=== PATIENT | male | born 1980 | race Caucasian/White ===

== ENCOUNTER 2024-07-28 09:31 | Emergency (ER) | payer OTHER, SELFPAY ==
[2024-07-28] VITALS (8 sets, daily range): BP systolic 123–148; BP diastolic 80–86; PULSE 75–99; RESP 16; TEMP 36.6; O2SAT 97–100
--- NOTE | ~2024-07-28 | XR_ITS ---
EXAMINATION: XR chest 2V DATE: 07/28/2024 11:07 INDICATION: Chest pain. TECHNIQUE: Frontal and lateral views of the chest were obtained. COMPARISON: None. FINDINGS: There is no pneumonia, pleural effusion, or pneumothorax. The heart size is normal. IMPRESSION: 1. No acute cardiopulmonary disease. Reviewed, dictated and finalized at location [facility]. [facility] OF STAFF
--- NOTE | 2024-07-28 09:39 | ECG_ITS ---
Test Date: 2024-07-28 09:43:26 Measurements Intervals [place] Rate: 81 P: 66 NV: 134 QRS: 65 QRSD: 90 T: 52 QT: 334 QTc: 388 Interpretive Statements SINUS RHYTHM DELAYED PRECORDIAL R/S TRANSITION BORDERLINE ECG No previous ECG available for comparison Electronically Signed On 07-28-2024 10:08:04 [employer]OOK [employer] by Michael Medrano D.O.
[2024-07-28 10:46] LABS: Basophils Absolute Auto 0.1 K/mm3 (0.0-0.1); Basophils Percent Auto 0.9 % (0.2-1.2); Eosinophils Absolute Auto 0.1 K/mm3 (0-0.3); Eosinophils Percent Auto 1.7 % (0-4.4); Hematocrit 41.3 % (42.0-52.0); Hemoglobin 14.2 g/dL (14.0-18.0); Immature Granulocyte Absolute 0.02 K/mm3 (0.00-0.031); Immature Granulocyte Percent A 0.3 % (0-0.5); Lymphocytes Absolute Auto 1.07 K/mm3 (0.9-3.2); Lymphocytes Percent Auto 16.1 % (18.3-44.2); Mean Corpuscular HGB Conc 34.4 g/dl (32-36); Mean Corpuscular Hemoglobin 30.1 pg (26-34); Mean Corpuscular Volume 87.5 fl (80-100); Mean Platelet Volume 9.3 fl (7.4-10.4); Monocytes Absolute Auto 0.5 K/mm3 (0.1-0.6); Monocytes Percent Auto 7.7 % (2.6-8.5); Neutrophils Absolute Auto 4.9 K/mm3 (1.3-6.7); Neutrophils Percent Auto 73.3 % (45.5-73.1); Platelet Count Result 274 k/mm3 (150-375); Red Blood Count 4.72 M/mm3 (4.6-6.20); Red Cell Distribution Width 12.4 % (11.5-14.5); White Blood Count 6.6 K/mm3 (4.5-10.0)
[2024-07-28 11:03] LABS: Alanine Aminotransferase 27 U/L (6-50); Albumin Level 4.4 g/dL (3.5-5.1); Alkaline Phosphatase 42 U/L (38-126); Anion Gap 6 mmol/L (4-12); Aspartate Amino Transferase 29 U/L (17-59); Bilirubin,Total 0.8 mg/dL (0.2-1.3); Blood Urea Nitrogen 8 mg/dL (9-20); Calcium 9.5 mg/dL (8.4-10.2); Carbon Dioxide 31 mmol/L (22-30); Chloride 102 mmol/L (98-107); Estimated CRCL calculation 132 ml/min; Estimated Glomerular Filt Rate > 60; Glucose 102 mg/dL (65-110); Potassium 3.6 mmol/L (3.4-5.0); Sodium 139 mmol/L (137-145)
[2024-07-28 11:07] LABS: Prothrombin Time 13.1 Seconds (11.1-14.7)
[2024-07-28 11:15] LABS: Troponin I < 0.012 ng/mL (0.000-0.034)
--- NOTE | 2024-07-28 11:16 | ED.ARRPALP ---
HPI - Arrhythmia/Palpitations General Chief Complaint: Arrhythmia/Palpitations Stated Complaint: PALPITATIONS Time Seen by Provider: 07/28/24 11:08 History of Present Illness HPI narrative: Pt presents with palpitations off and on for several days. Pt denies CP. Pt says he has been under a lot of stress and has not beens sleeping well. Pt tries to exercise regularly but this seems to make it worse. Pt was drinking a lot of caffeine but has stopped this about a week ago. Related Data Home Medications Medication Instructions Recorded Confirmed multivitamin 1 tablet PO DAILY 02/01/24 02/08/24 Allergies Allergy/AdvReac Type Severity Reaction Status Date / Time No Known Allergies Allergy Verified 07/28/24 09:42 Review of Systems Review of Systems: All systems reviewed & are unremarkable except as noted in HPI and below PMFSH Past Medical History Medical History (Updated 07/28/24 @ 11:22 by Chemo Rodriguez III, DO) Depression with anxiety Social History Social History Smoking status: Never smoker Alcohol intake: current Substance use: never Substance use type: does not use Lack of Transportation: No Lack of Food: Never True Current Housing: I Have Housing Concerned About Future Housing: No Difficulty Paying Gas/Electric Bills: No Difficulty Paying for Meds: No Currently Unemployed: No Education: Master's Degree or Higher Difficulty w/ Childcare or Family Care: No Living arrangements: with family Occupation/Education: occupation Exam Const: General: healthy appearing and no acute distress Nutritional Appearance: well nourished Orientation/consciousness: patient oriented x3 Limitations: no limitations Resp: Effort & Inspection: normal respiratory effort Auscultation: clear to auscultation bilaterally Cardio: Rate: regular rate Rhythm: regular rhythm Skin: General skin exam: normal color Wounds: no wounds Neuro: General: patient oriented x3, moves all extremities, no focal motor deficits and CN's II-XI intact bilaterally Speech: normal speech Extrem: General: normal to inspection and no clubbing, cyanosis or edema Psych: Mental Status: mental status grossly normal Affect: normal affect Attitude: cooperative Course Vital Signs Vital signs: Vital Signs Temperature 97.8 F 07/28/24 09:39 Pulse Rate 99 07/28/24 09:39 Respiratory Rate 16 07/28/24 09:39 Blood Pressure 148/86 H 07/28/24 09:39 Pulse Oximetry 99 07/28/24 09:39 Temperature 97.9 F 07/28/24 12:31 Pulse Rate 77 07/28/24 12:31 Respiratory Rate 16 07/28/24 12:31 Blood Pressure 125/83 07/28/24 12:31 Pulse Oximetry 99 07/28/24 12:31 Oxygen Delivery Room Air 07/28/24 10:40 MDM - Arrhythmia/Palpitations MDM Narrative Medical decision making narrative: Pt presents with palpitations. under a ot of stress recently and not seeping well. could be pvc's or an arrythimia not seen on ekg here. will chech labs and likely Holter monitor. Differential Diagnosis Differential diagnosis: Likely palpitations, anxiety, artial fibrillation, artial flutter, ventricular premature beats, supraventricular tachycardia and WPW Lab Data 07/28/24 10:42 07/28/24 10:42 Labs: Lab Results 07/28/24 Range/Units 10:42 WBC 6.6 (4.5-10.0) K/mm3 RBC 4.72 (4.6-6.20) M/mm3 Hgb 14.2 (14.0-18.0) g/dL Hct 41.3 L (42.0-52.0) % MCV 87.5 (80-100) fl MCH 30.1 (26-34) pg MCHC 34.4 (32-36) g/dl RDW 12.4 (11.5-14.5) % Plt Count 274 (150-375) k/mm3 MPV 9.3 (7.4-10.4) fl Immature Gran % (Auto) 0.3 (0-0.5) % Neut % (Auto) 73.3 H (45.5-73.1) % Lymph % (Auto) 16.1 L (18.3-44.2) % [place] % (Auto) 7.7 (2.6-8.5) % Eos % (Auto) 1.7 (0-4.4) % Baso % (Auto) 0.9 (0.2-1.2) % Lymph # (Auto) 1.07 (0.9-3.2) K/mm3 [place] # (Auto) 0.5 (0.1-0.6) K/mm3 Eos # (Auto) 0.1 (0-0.3) K/mm3 Baso # (Auto) 0.1 (0.0-0.1) K/mm3 Abs Immat Gran (auto) 0.02 (0.00-0.031) K/mm3 Absolute Neuts (auto) 4.9 (1.3-6.7) K/mm3 Absolute Nucleated RBC 0.000 (0.0-0.012) K/mm3 Nucleated RBC % 0.0 (0.0-0.2) % PT 13.1 (11.1-14.7) Seconds INR 1.0 APTT 28.0 (22.3-36.8) Seconds Sodium 139 (137-145) mmol/L Potassium 3.6 (3.4-5.0) mmol/L Chloride 102 (98-107) mmol/L Carbon Dioxide 31 H (22-30) mmol/L Anion Gap 6 (4-12) mmol/L BUN 8 L (9-20) mg/dL Creatinine 0.60 L (0.7-1.3) mg/dL Estim Creat Clear Calc 132 ml/min Estimated GFR > 60 (59 - ) Glucose 102 (65-110) mg/dL Calcium 9.5 (8.4-10.2) mg/dL Total Bilirubin 0.8 (0.2-1.3) mg/dL AST 29 (17-59) U/L ALT 27 (6-50) U/L Alkaline Phosphatase 42 (38-126) U/L Troponin I < 0.012 (0.000-0.034) ng/mL Total Protein 7.0 (6.3-8.2) g/dL Albumin 4.4 (3.5-5.1) g/dL ECG Data EKG #1: Attestation: I personally reviewed and interpreted this ECG as follows: Interpretation: nsr rate [address] or t wave changes Discharge Plan Discharge Clinical Impression: Palpitations Patient Disposition: Home, Self-Care Condition: Stable Instructions: Antibiotic Form, Heart Palpitations (DC) Additional Instructions: drink lots of water. monitor to go home on for 5 days. return if worse of concerns Prescriptions: No Action multivitamin Tablet 1 tablet PO DAILY buspirone 10 mg tablet 10 mg PO BID Qty: 60 2RF Follow-up/Referrals: Terrence Wetzel, [Primary Care Provider] -
--- NOTE | 2024-07-28 11:32 | PC.NURSE ---
Kiesha with cardiology notified of order for Holter monitor 3-7 day. Kiesha to come apply & educate pt.
--- NOTE | 2024-07-28 12:19 | PC.NURSE ---
Continue to wait for cardiology to apply holter monitor
--- NOTE | 2024-07-28 12:51 | PC.NURSE ---
surveillance monitor applied by converting technician. Pt voices understading of use. Discharged home
== END 2024-07-28 12:54 | disposition home or self-care (01) ==
LOC: ANHED 11:26
PROVIDERS: Emergency Provider Emergency Medicine; PCP Family Medicine
DX: R00.2 Palpitations (principal); F32.A Depression, unspecified; F41.9 Anxiety disorder, unspecified
CPT/HCPCS: 36415; 71046; 80053; 84484; 85025; 85610; 85730; 93005; 93242; 99284

== ENCOUNTER 2025-05-25 01:50 | Day surgery (SDC) | payer OTHER, SELFPAY ==
[2025-05-20 16:06] VITALS: BMI 24.7
[2025-05-25 07:32] VITALS: BP 120/73; PULSE 62; RESP 18; TEMP 36.6; O2SAT 100; BMI 25.2
[2025-05-25] MEDS: LACTATED RINGERS 1,000 ML 150 ML IV CONT (07:45)
--- NOTE | 2025-05-25 08:04 | P.PNAN_ITS ---
Anes - Initial Pre Proc Eval Procedure: Operation Date: 05/25/25 08:45 Proposed Procedures p Esophagogastroduodenoscopy EGD - Sloomon Esqueda MD Date/Time: 05/25/25 08:04 Surgeon: Solomon Esqueda MD Pre Op Diagnosis: Nausea, Abdominal distension (gaseous) Patient Data Age: 44 Gender: M Height: 1.73 m Weight: 75.5 kg Last Vital Signs Temp 36.6 C 05/25/25 07:32 Pulse 62 05/25/25 07:32 Resp 18 05/25/25 07:32 BP 120/73 05/25/25 07:32 Pulse Ox 100 05/25/25 07:32 O2 Del Method Room Air 05/25/25 07:32 Allergies Allergy/AdvReac Type Severity Reaction Status Date / Time No Known Allergies Allergy Verified 05/25/25 07:38 Home Medications ?Medication ?Instructions ?Recorded ?Confirmed ?Type multivitamin 1 tablet PO DAILY 02/01/24 0 05/20/25 History albuterol sulfate 90 mcg/actuation 1 puff inhalation Q 4H PRN 12/02/24 05/20/25 History aerosol inhaler (Ventolin HFA) shortness of breath or wheezing buspirone 15 mg tablet 15 mg PO BID #180 tabs 04/2705/25/25 Rx rifaximin 550 mg tablet (Xifaxan) 550 mg PO TID 14 day s #42 tabs 05/15/25 05/25/25 Rx Patient hx anesthesia problems: none Family hx anesthesia problems: none Results Review: All pre-operative results and documents have been reviewed as part of the pre- operative evaluation. [facility] Past Medical History Medical History Depression with anxiety Family History Family History Mother Depression Cerebrovascular accident Father Diabetes mellitus Alcohol abuse Substance abuse Social History Social History Smoking packs per day: 1 Smoking cigarettes per day: 20.0 Years smoked: 15 Smoking pack-years: 15.00 Smoking status: Former smoker Tobacco type: cigarettes Alcohol intake: former Substance use: former Substance use type: marijuana Other substance usage details: edibles Last use: weekends only - 02/2025 QUIT Lack of Transportation: No Lack of Food: Never True Current Housing: I Have Housing Concerned About Future Housing: No Difficulty Paying Gas/Electric Bills: No Difficulty Paying for Meds: No Currently Unemployed: No Education: Master's Degree or Higher Difficulty w/ Childcare or Family Care: No Living arrangements: with family Occupation/Education: occupation Spiritual care concerns: No Anes - Eval Final PreProcedure Day of Procedure 05/25/25 08:04 Patient weight: normal Heart: regular rate and rhythm Lungs: clear to auscultation Airway: Mallampati scale class II Neurological: alert and oriented Last oral intake: >/= 8 hours ASA classification: II Emergent: no Anesthetic plan: proceed Anesthesia type and monitoring: general GIVS and standard monitoring Results Review: All pre-operative results and documents have been reviewed as part of the pre-operative evaluation. Informed Consent: The patient's anesthetic plan and its attendant risks and benefits were discussed with the patient/family/POA. Questions were solicited and answers provided to the satisfaction of the patient/family/POA.
--- NOTE | 2025-05-25 08:29 | WPDHPUPDATE1 ---
History and Physical Update Update Date/Time: 05/25/25 08:29 History and Physical has been reviewed, including an updated exam of the patient. There are NO changes in the patient's condition. Risks, benefits, and alternatives have been discussed and questions answered. Patient agrees to proceed with procedure.
--- NOTE | 2025-05-25 08:36 | S_PTH ---
PATIENT: Abdoulaye Galaviz LOC: [facility] Stacy#:[id number] AGE/SX: 44/M ROOM: RE05/25/[address]: Solomon Esqueda MD : 1980 BED: DIS: 05/25/2025 SPEC #: [id number] RECD: 05/25/25 10:12 STATUS: BEL PALOMINO #: [id number] BRENDA: 05/25/25 08:[address]: Solomon Esqueda DEPT: [facility] Surgical RECD BY: Aimee Miller ENTERED: 05/25/25 10:12 SP TYPE: Surgical OTHR DR: Carol Ann Burton, LANNY Tissues: A - Gastric Biopsy B - Small Bowel Bx Procedures: Hematoxylin and Eosin Stain Gross and Microscopic Level 4
[2025-05-25 08:39] VITALS: BP 99/62; PULSE 63; RESP 22; O2SAT 97
[2025-05-25 08:49] VITALS: BP 98/65; PULSE 60; RESP 20; O2SAT 98
[2025-05-25 08:59] VITALS: BP 103/66; PULSE 59; RESP 21; O2SAT 98
== END 2025-05-25 09:13 | disposition home or self-care (01) ==
PROVIDERS: PCP Nurse Practitioner Family; Referring Provider Nurse Practitioner; Visit Provider Internal Medicine Gastroenterology
PROC: 0DJ08ZZ Inspection of Upper Intestinal Tract, Via Natural or Artificial Opening Endoscopic (ICD-10-PCS; CPT 43239; principal; 2025-05-25 08:45)
DX: K21.9 Gastro-esophageal reflux disease without esophagitis (principal); F41.8 Other specified anxiety disorders; E73.9 Lactose intolerance, unspecified; F12.90 Cannabis use, unspecified, uncomplicated; Z79.51 Long term (current) use of inhaled steroids; Z87.891 Personal history of nicotine dependence
CPT/HCPCS: 43239; 88305; J2003; J2704; J7120

== ENCOUNTER 2025-08-18 01:56 | Day surgery (SDC) | payer OTHER, SELFPAY ==
[2025-07-23 14:05] VITALS: BMI 23.8
[2025-08-10 10:13] VITALS: BMI 23.8
[2025-08-18 10:29] VITALS: BP 126/70; PULSE 84; RESP 20; TEMP 36.1; O2SAT 98; BMI 24.8
[2025-08-18] MEDS: LACTATED RINGERS 1,000 ML 150 ML IV CONT (10:40)
--- NOTE | 2025-08-18 10:49 | WPDANESEPPF ---
Anes - Initial Pre Proc Eval Procedure: Operation Date: 08/18/25 11:30 Proposed Procedures p Diagnostic Colonoscopy - Solomon Esqueda MD Date/Time: 08/18/25 10:49 Surgeon: Solomon Esqueda MD Pre Op Diagnosis: Other specified symptoms and signs involving the d Patient Data Age: 44 Gender: M Height: 1.73 m Weight: 74.1 kg Last Vital Signs Temp 97 F L 08/18/25 10:29 Pulse 84 08/18/25 10:29 Resp 20 08/18/25 10:29 BP 126/70 08/18/25 10:29 Pulse Ox 98 08/18/25 10:29 O2 Del Method Room Air 08/18/25 10:29 Allergies Allergy/AdvReac Type Severity Reaction Status Date / Time No Known Allergies Allergy Verified 08/18/25 10:28 Home Medications ?Medication ?Instructions ?Recorded ?Confirmed ?Type albuterol sulfate 90 mcg/actuation 1 puff inhalation Q4H PRN 12/02/24 07/23/25 History aerosol inhaler (Ventolin HFA) shortness of breath or wheezing buspirone 15 mg tablet 15 mg PO BID #180 tabs 07/23/25 08/18/25 Rx Patient hx anesthesia problems: none Family hx anesthesia problems: none Results Review: All pre-operative results and documents have been reviewed as part of the pre-operative evaluation. [facility] Past Medical History Medical History Depression with anxiety Family History Family History Mother Depression Cerebrovascular accident Father Diabetes mellitus Alcohol abuse Substance abuse Social History Social History Smoking packs per day: 1 Smoking cigarettes per day: 20.0 Years smoked: 15 Smoking pack-years: 15.00 Smoking status: Former smoker Tobacco type: cigarettes Alcohol intake: former Substance use: former Substance use type: marijuana Other substance usage details: edibles Last use: weekends only - 02/2025 QUIT Lack of Transportation: No Lack of Food: Never True Current Housing: I Have Housing Concerned About Future Housing: No Difficulty Paying Gas/Electric Bills: No Difficulty Paying for Meds: No Currently Unemployed: No Education: Master's Degree or Higher Difficulty w/ Childcare or Family Care: No Living arrangements: with family Occupation/Education: occupation Spiritual care concerns: No Anes - Eval Final PreProcedure Day of Procedure 08/18/25 10:49 Patient weight: normal Lungs: normal air movement Airway: Mallampati scale class II Neurological: alert and oriented Last oral intake: >/= 8 hours ASA classification: II Emergent: no Anesthetic plan: proceed Anesthesia type and monitoring: general GIVS and standard monitoring Results Review: All pre-operative results and documents have been reviewed as part of the pre-operative evaluation. Mild asthma, stable, anxiety, pt active w 30 mins cardio most days, no cp or sob. Informed Consent: The patient's anesthetic plan and its attendant risks and benefits were discussed with the patient/family/POA. Questions were solicited and answers provided to the satisfaction of the patient/family/POA.
--- NOTE | 2025-08-18 11:32 | PM.HPGS ---
History of Present Illness History of Present Illness Consent: Risks, benefits, and alternatives have been discussed and questions answered. Patient agrees to proceed with procedure. Chief complaint: Other specified symptoms and signs involving the d Narrative: Abdoulaye Zayas is a 44 year old male with ibs, last colonoscopy 2016 Review of Systems Review of Systems: All systems reviewed & are unremarkable except as noted in HPI and below PMFSH Past Medical History Medical History Depression with anxiety Family History Family History Mother Depression Cerebrovascular accident Father Diabetes mellitus Alcohol abuse Substance abuse Social History Social History Smoking packs per day: 1 Smoking cigarettes per day: 20.0 Years smoked: 15 Smoking pack-years: 15.00 Smoking status: Former smoker Tobacco type: cigarettes Alcohol intake: former Substance use: former Substance use type: marijuana Other substance usage details: edibles Last use: weekends only - 02/2025 QUIT Lack of Transportation: No Lack of Food: Never True Current Housing: I Have Housing Concerned About Future Housing: No Difficulty Paying Gas/Electric Bills: No Difficulty Paying for Meds: No Currently Unemployed: No Education: Master's Degree or Higher Difficulty w/ Childcare or Family Care: No Living arrangements: with family Occupation/Education: occupation Spiritual care concerns: No Meds Home Medications and Allergies Home Medications ?Medication ?Instructions ?Recorded ?Confirmed ?Type albuterol sulfate 90 mcg/actuation 1 puff inhalation Q4H PRN 12/02/24 07/23/25 History aerosol inhaler (Ventolin HFA) shortness of breath or wheezing buspirone 15 mg tablet 15 mg PO BID #180 tabs 07/23/25 08/18/25 Rx Allergies Allergy/AdvReac Type Severity Reaction Status Date / Time No Known Allergies Allergy Verified 08/18/25 10:28 Vital Signs Vital Signs - 24 hr 08/18/25 10:29 Temperature 97 F L Pulse Rate 84 Respiratory Rate 20 Blood Pressure 126/70 Pulse Oximetry 98 Oxygen Delivery Room Air Exam Const: General: comfortable and no acute distress HENMT: Face/Nose/Sinus: Normal nares present Eyes: General: appearance normal, both eyes and all related structures Neck: Neck: no JVD Resp: Auscultation: clear to auscultation bilaterally Cardio: Rate: regular rate Rhythm: regular rhythm GI: Inspection: non-distended GI Palp: Yes Soft to palpation Skin: General skin exam: normal color Assessment and Plan Assessment and plan (1) Irritable bowel syndrome with diarrhea: Code(s): K58.0 - Irritable bowel syndrome with diarrhea Status: Acute Assessment and Plan: colonoscopy with bx
--- NOTE | 2025-08-18 11:42 | S_PTH ---
PATIENT: Abdoulaye Galaviz LOC: [facility] St[facility]#:[id number] AGE/SX: 44/M ROOM: RE08/18/[address]: Solomon Esqueda MD : 1980 BED: DIS: 08/18/2025 SPEC #: [id number] RECD: 08/18/25 12:59 STATUS: BEL PALOMINO #: [id number] BRENDA: 08/18/25 11:[address]: Solomon Esqueda DEPT: [facility] Surgical RECD BY: Karyna Morales ENTERED: 08/18/25 12:59 SP TYPE: Surgical OTHR DR: Carol Ann Burton, LANNY Tissues: A - Colon Biopsy Procedures: Hematoxylin and Eosin Stain Gross and Microscopic Level 4
[2025-08-18 11:49] VITALS: BP 94/63; PULSE 68; RESP 24; O2SAT 97
[2025-08-18 11:59] VITALS: BP 95/63; PULSE 65; RESP 21; O2SAT 99
[2025-08-18 12:09] VITALS: BP 130/71; PULSE 86; RESP 20; O2SAT 100
== END 2025-08-18 12:21 | disposition home or self-care (01) ==
PROVIDERS: PCP Nurse Practitioner Family; Referring Provider Nurse Practitioner; Visit Provider Internal Medicine Gastroenterology
PROC: 0DJD8ZZ Inspection of Lower Intestinal Tract, Via Natural or Artificial Opening Endoscopic (ICD-10-PCS; CPT 45378; principal; 2025-08-18 11:30)
DX: K58.0 Irritable bowel syndrome with diarrhea (principal); K64.8 Other hemorrhoids; K57.30 Diverticulosis of large intestine without perforation or abscess without bleeding; J45.909 Unspecified asthma, uncomplicated; F41.8 Other specified anxiety disorders; Z79.51 Long term (current) use of inhaled steroids; Z87.891 Personal history of nicotine dependence
CPT/HCPCS: 45380; 88305; J2003; J2704; J7120